=== PATIENT | female | born 1935 | race Caucasian/White ===

== ENCOUNTER → 2016-10-20 | Outpatient (REF) | payer MEDICARE | LOC: LAB 09:33 | PROVIDERS: ATTEND Internal Medicine | DX: R30.0 Dysuria (principal); R31.29 Other microscopic hematuria | CPT/HCPCS: 87077; 87088; 87186 ==

== ENCOUNTER → 2016-11-15 | Outpatient (REF) | payer MEDICARE | LOC: LAB 09:25 | PROVIDERS: ATTEND Internal Medicine | DX: M54.2 Cervicalgia (principal); M25.512 Pain in left shoulder | CPT/HCPCS: 85652 ==

== ENCOUNTER → 2016-11-16 | Outpatient (CLI) | payer MEDICARE ==
[2016-11-16 09:02] LABS: BASOPHILS % (AUTO) 0 % (0-2); EOSINOPHILS % (AUTO) 0 % (0-4); LYMPHOCYTES # (AUTO) 1.1 X10^3; MEAN CORPUSCULAR HEMOGLOBIN 28.6 PG (26.0-34.0); MEAN CORPUSCULAR HGB CONC 33.4 g/dL (31.0-37.0); MEAN CORPUSCULAR VOLUME 86 FL (80-100); MEAN PLATELET VOLUME 8.4 FL (6.0-9.5); MONOCYTES # (AUTO) 0.6 X10^3; MONOCYTES % (AUTO) 5 % (3-11); NEUTROPHILS # (AUTO) 9.6 X10^3; NEUTROPHILS % (AUTO) 85 % (51-67); PLATELET COUNT 356 10^3uL (150-450)
[2016-11-16 09:30] LABS: ANION GAP 15.7 MEQ/L (3-15)
[2016-11-17 04:57] LABS: ANTI NUCLEAR ANTIBODY SCREEN Negative (Negative)
== END ==
LOC: LAB 08:43
PROVIDERS: ATTEND Internal Medicine
DX: M54.2 Cervicalgia (principal); M25.512 Pain in left shoulder
CPT/HCPCS: 36415; 80048; 85025; 86038; 86200; 86431

== ENCOUNTER → 2016-11-19 | Outpatient (CLI) | payer MEDICARE ==
--- NOTE | 2016-11-19 17:06 | Diagnostic Imaging Report ---
INDICATION: Neck pain. EXAMINATION: AP, oblique, and lateral views of the cervical spine are obtained. FINDINGS: There is diffuse degenerative changes of cervical spine with disc space narrowing at C3-C4, C4-C5, C5-C6, and C6-C7. There is mild anterolisthesis of C4 on C5 by about 2-3 mm, probably on degenerative basis. There is diffuse facet degenerative change. IMPRESSION: Multilevel degenerative change of the cervical spine as described above. Mild anterolisthesis of C4 on C5 that is probably on degenerative basis. Dictated by: Dictated on workstation # [id number]
== END ==
LOC: RAD 16:14
PROVIDERS: ATTEND Internal Medicine
DX: M54.2 Cervicalgia (principal); M50.321 Other cervical disc degeneration at C4-C5 level; M50.322 Other cervical disc degeneration at C5-C6 level; M50.31 Other cervical disc degeneration, high cervical region
CPT/HCPCS: 72050

== ENCOUNTER → 2016-11-26 | Outpatient (CLI) | payer MEDICARE ==
[2016-11-26 08:02] LABS: BASOPHILS % (AUTO) 0 % (0-2); EOSINOPHILS # (AUTO) 0.1 10^3uL; EOSINOPHILS % (AUTO) 1 % (0-4); LYMPHOCYTES # (AUTO) 3.7 X10^3; MEAN CORPUSCULAR HEMOGLOBIN 27.9 PG (26.0-34.0); MEAN CORPUSCULAR HGB CONC 32.8 g/dL (31.0-37.0); MEAN CORPUSCULAR VOLUME 85 FL (80-100); MEAN PLATELET VOLUME 8.5 FL (6.0-9.5); MONOCYTES # (AUTO) 0.7 X10^3; MONOCYTES % (AUTO) 7 % (3-11); NEUTROPHILS # (AUTO) 4.5 X10^3; NEUTROPHILS % (AUTO) 50 % (51-67); PLATELET COUNT 367 10^3uL (150-450); WHITE BLOOD COUNT 9.04 10^3uL (4.0-11.0)
[2016-11-26 08:33] LABS: ALBUMIN 3.5 g/dL (3.4-5.0); ANION GAP 12.9 MEQ/L (3-15); CALCULATED IONIZED CALCIUM 4.5 mg/dL (3.8-4.6); TOTAL PROTEIN 6.5 g/dL (6.4-8.5)
[2016-11-26 08:46] LABS: ERYTHROCYTE SEDIMENTATION RT* 41 mm/hr (0-23)
== END ==
LOC: LAB 07:33
PROVIDERS: ATTEND Internal Medicine
DX: Z00.00 Encounter for general adult medical examination without abnormal findings (principal); I48.91 Unspecified atrial fibrillation; I10 Essential (primary) hypertension; E78.4 Other hyperlipidemia; R73.09 Other abnormal glucose; M85.80 Other specified disorders of bone density and structure, unspecified site; M54.2 Cervicalgia; M25.512 Pain in left shoulder
CPT/HCPCS: 36415; 80053; 80061; 82306; 83036; 84443; 85025; 85652

== ENCOUNTER → 2016-12-09 | Outpatient (CLI) | payer MEDICARE ==
--- NOTE | 2016-12-09 17:19 | Diagnostic Imaging Report ---
PROCEDURE: MR imaging of the brain without contrast. INDICATION: Memory impairment. TECHNIQUE: Multiplanar, multisequence MR imaging of the brain was performed without contrast. CORRELATION STUDY: None. FINDINGS: There are generalized atrophic changes with prominence of the ventricles and sulci. The ventricular dilatation may be very slightly greater than the sulci pattern. There are scattered areas of nonspecific hyperintense T2 signal change, relatively mild in severity for the patient's age. No edema pattern. No midline shift or mass effect. There are no restricted areas of diffusion to suggest acute ischemia. Craniocervical junction and midline structures appearing unremarkable. There are normal expected intracranial flow voids. No evidence for intracranial hemorrhage. IMPRESSION: 1. Negative for acute intracranial abnormality on noncontrast MRI of the brain. 2. Generalized atrophic changes with perhaps very mild changes of small vessel ischemic disease. The ventricular dilatation may be slightly greater than that of the sulci pattern. This is likely simply attributed to the distribution of the atrophic changes, however the possibility of early normal pressure hydrocephalus is not excluded and correlation with clinical symptoms recommended. Dictated by: Dictated on workstation # [id number]
== END ==
LOC: RAD 14:07
PROVIDERS: ATTEND Internal Medicine
DX: R41.3 Other amnesia (principal)
CPT/HCPCS: 70551